=== PATIENT | male | born 1960 | race Caucasian/White ===

== ENCOUNTER 2016-11-29 03:12 | Emergency (ER) | payer SELFPAY ==
[~2016-11-29] VITALS: Ht 170.2 cm; Wt 56.0 kg
[2016-11-29 03:30] VITALS: BP 129/88
== END 2016-11-29 04:42 | disposition left against medical advice (07) ==
LOC: ED 04:11
DX: Z00.00 Encounter for general adult medical examination without abnormal findings (principal)
CPT/HCPCS: 99283